=== PATIENT | male | born 1980 | race Hispanic/Latino ===

== ENCOUNTER 2022-12-28 10:39 | Emergency (ER) | payer SELFPAY ==
[2022-12-28] MEDS ORDERED: Morphine 4 MG/ML VIAL ONE (10:51)
[2022-12-28] MEDS ORDERED: Ondansetron PF 4 MG/2 ML Vial ONE (10:52)
[2022-12-28] MEDS ORDERED: CEFAZOLIN 2 GM VIAL ONE (12:04)
[2022-12-28] MEDS ORDERED: Lidocaine 1% w/Epinephrine 1:100K 20 ML VIAL ONE ×2 (12:04→12:07)
== END 2022-12-28 13:30 | disposition home or self-care (01) ==
LOC: ERS 10:39
DX: S09.90XA Unspecified injury of head, initial encounter (principal); S01.01XA Laceration without foreign body of scalp, initial encounter; V19.9XXA Pedal cyclist (driver) (passenger) injured in unspecified traffic accident, initial encounter
CPT/HCPCS: 12002; 70450; 71045; 72125; 72131; 96365; 96375; J2270; J2405